=== PATIENT | male | born 1965 | race Caucasian/White ===

== ENCOUNTER 2019-10-20 13:44 | Emergency (ER) | payer OTHER ==
--- NOTE | 2019-10-20 13:55 | ED ---
Shortness of Breath - HPI Summary HPI Summary: This patient is a 54 year old male presenting to [facility] with a chief complaint of SOB/wheezing one week ago. He states he has a Hx of asthma and had an episode like this one year ago. He states he no longer has an inhaler at home. He states his symptoms have gotten better and worse over the last week. He denies fever. He reports cough. Medications reviewed, allergies noted. - History of Current Complaint Chief Complaint: EDAsthma Time Seen by Provider: 10/20/19 13:49 Hx Obtained From: Patient Onset/Duration: Lasting Hours Associated Signs & Symptoms: Cough (Productive), Wheezing - Allergy/Home Medications Allergies/Adverse Reactions: Allergies Allergy/AdvReac Type Severity Reaction Status Date / Time No Known Allergies Allergy Verified 10/20/19 13:48 PMH/Surg Hx/FS Hx/Imm Hx Cardiovascular History: Denies: Hx Pacemaker/ICD Psychiatric History: Denies: Hx Panic Disorder - Surgical History Surgery Procedure, Year, and Place: HERNIA A CHILD Infectious Disease History: No Infectious Disease History: Denies: Traveled Outside the in Last 30 Days - Family History Known Family History: Negative: Seizure Disorder - Social History Lives: Alone Hx Substance Use: No Substance Use Type: Reports: None Review of Systems Negative: Fever Positive: Shortness Of Breath, Cough All Other Systems Reviewed And Are Negative: Yes Physical Exam - Summary Physical Exam Summary: Constitutional: Well-developed, Well-nourished, Alert. (-) Distressed Skin: Warm, Dry HENT: Normocephalic; Atraumatic Eyes: Conjunctiva normal Neck: Musculoskeletal ROM normal neck. (-) JVD, (-) Stridor, (-) Tracheal deviation Cardio: Rhythm regular, rate normal, Heart sounds normal; Intact distal pulses; Radial pulses are 2+ and symmetric. (-) Murmur Pulmonary/Chest wall: Effort normal. (-) Respiratory distress, Expiratory wheezing in all lung zamora. (-) Rales Abd: Soft, (-) tenderness, (-) Distension, (-) Guarding, (-) Rebound Musculoskeletal: Right leg is swollen compared to the left. 2+ pitting edema bilaterally. (-) Edema Lymph: (-) Cervical adenopathy Neuro: Alert, Oriented x3 Psych: Mood and affect Normal Triage Information Reviewed: Yes Vital Signs On Initial Exam: Initial Vitals Temp Pulse Resp BP Pulse Ox 97.8 F 87 22 155/95 97 10/20/19 13:45 10/20/19 13:45 10/20/19 13:45 10/20/19 13:45 10/20/19 13:45 Vital Signs Reviewed: Yes Procedures - Sedation Patient Received Moderate/Deep Sedation with Procedure: No Diagnostics - Vital Signs Vital Signs Temp Pulse Resp BP Pulse Ox 10/20/19 13:45 97.8 F 87 22 155/95 97 - Laboratory Result Diagrams: 10/20/19 14:07 10/20/19 14:07 Lab Statement: Any lab studies that have been ordered have been reviewed, and results considered in the medical decision making process. - Radiology CXR Radiology Interpretation Completed By: Radiologist Summary of Radiographic Findings: No active cardiopulmonary disease. ED Provider has reviewed this report. - EKG 1403 Cardiac Rate: NL - 76 BPM EKG Rhythm: Sinus Rhythm Summary of EKG Findings: No STEMI. ED Physician has reviewed and interpreted this EKG. Re-Evaluation - Re-Evaluation First Eval Re-Evaluation Time: 14:43 Change: Improved Comment: States he feels much better after albuterol treatment. Course/Dx - Course Course Of Treatment: Patient is here with shortness of breath over the past week. Patient's had similar episodes of this in the past and was diagnosed with asthma. Patient does not have any treatment at home. Patient does have a 38 year smoking history and likely has some underlying COPD. Patient had a chest x-ray which showed hyperinflated lungs. Patient had a BNP which was negative. Patient does have one leg is more swollen the other which is chronic so a d-dimer was ordered which was negative. Patient is given a albuterol treatment with vast improvement in his symptoms. Patient was discharged on albuterol and prednisone - Diagnoses Provider Diagnoses: Wheezing, SOB (shortness of breath), Lower extremity edema Discharge ED - Sign-Out/Discharge Documenting (check all that apply): Patient Departure - Discharge - Discharge Plan Condition: Stable Disposition: HOME Prescriptions: Albuterol HFA INHALER* [Ventolin HFA Inhaler*] 2 puff INH Q4H PRN #1 mdi PRN Reason: Wheezing predniSONE 20 mg TAB [Deltasone 20 MG TAB*] 40 mg PO DAILY 4 Days #8 tab Patient Education Materials: Wheezing (ED) Referrals: Nova Knight MD [Primary Care Provider] - Additional Instructions: Come back with trouble breathing, chest pain, or any other concerning symptoms. pbx supervisor your medication today and take as prescribed. - Billing Disposition and Condition Condition: STABLE Disposition: Home - Attestation Statements Document Initiated by Daquanibe: Yes Documenting Scribe: German Navarro Provider For Whom Scribe is Documenting (Include Credential): Дмитрий Torrez MD Scribe Attestation: German Castro, scribed for Дмитрий Torrez MD on 10/20/19 at 1656. Scribe Documentation Reviewed: Yes Provider Attestation: The documentation as recorded by the German dickey accurately reflects the service I personally performed and the decisions made by , Дмитрий Torrez MD Status of Scribe Document: Viewed
[2019-10-20] MEDS ORDERED: Albuterol 2.5 MG/3 ML NEB.SOL* (0.083%) INH ONE (13:57)
[2019-10-20 14:19] LABS: ABS Eosinophils 0.6 10^3/ul (0-0.6); ABS Lymphocytes 2.4 10^3/ul (1.0-4.8); ABS Monocytes 0.4 10^3/ul (0-0.8); ABS Neutrophils 2.9 10^3/ul (1.5-7.7); Eosinophil % 8.8 %; Hematocrit 47 % (42-52); Hemoglobin 16.4 g/dL (14.0-18.0); Lymphocyte % 38.2 %; Mean Corpuscular HGB Conc 35 g/dL (31-36); Mean Corpuscular Hemoglobin 30 pg (27-31); Mean Corpuscular Volume 85 fL (80-94); Mean Platelet Volume 8.5 fL (7.4-10.4); Nucleated Red Blood Cells % 0.2; Platelet Count 236 10^3/uL (150-450); Red Blood Count 5.48 10^6 /uL (4.18-5.48); Red Cell Distribution Width 13 % (10-15); White Blood Count 6.2 10^3/uL (3.5-10.8)
[2019-10-20 14:35] LABS: Albumin 4.3 g/dL (3.2-5.2); Albumin/Globulin Ratio 1.7 (1-3); BUN/Creatinine Ratio 15.2 (8-20); Calcium 9.1 mg/dL (8.6-10.3); EGFR African American 89.1 (>60); EGFR Non-African American 73.6 (>60); Globulin 2.6 g/dL (2-4); Total Bilirubin 0.5 mg/dL (0.2-1.0); Total Protein 6.9 g/dL (6.4-8.9)
[2019-10-20 14:59] VITALS: BP 130/82
[2019-10-20 15:04] LABS: Potassium 4.3 mmol/L (3.5-5.0)
== END 2019-10-20 15:00 | disposition home or self-care (01) ==
LOC: ED 13:44
DX: R06.02 Shortness of breath (principal); R06.2 Wheezing; R60.0 Localized edema
CPT/HCPCS: 36415; 71046; 80053; 83880; 84484; 85025; 85379; 93005; 99282; J7512